=== PATIENT | male | born 1960 | race American Indian/Alaskan Native ===

== ENCOUNTER 2019-04-07 23:29 | Emergency (ER) | payer OTHER ==
[2019-04-07 23:36] VITALS: BP 163/103
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
[2019-04-08] MEDS ORDERED: IBUPROFEN PO ONE (01:11)
== END 2019-04-08 01:43 | disposition home or self-care (01) ==
LOC: ED 23:29
DX: M54.2 Cervicalgia (principal); R03.0 Elevated blood-pressure reading, without diagnosis of hypertension; F17.200 Nicotine dependence, unspecified, uncomplicated; Z98.890 Other specified postprocedural states; Z79.899 Other long term (current) drug therapy; V89.2XXA Person injured in unspecified motor-vehicle accident, traffic, initial encounter; Y93.89 Activity, other specified; Y92.488 Other paved roadways as the place of occurrence of the external cause; Y99.8 Other external cause status
CPT/HCPCS: 72040; 99283

== ENCOUNTER 2021-07-18 19:37 | Emergency (ER) | payer OTHER ==
[2021-07-18] MEDS ORDERED: ACETAMINOPHEN 325 MG TAB PO ONE (20:06)
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
[2021-07-18 21:57] VITALS: BP 192/111
== END 2021-07-18 21:40 | disposition home or self-care (01) ==
LOC: ED 19:37
DX: S16.1XXA Strain of muscle, fascia and tendon at neck level, initial encounter (principal); M62.838 Other muscle spasm; R03.0 Elevated blood-pressure reading, without diagnosis of hypertension; F17.200 Nicotine dependence, unspecified, uncomplicated; V49.49XA Driver injured in collision with other motor vehicles in traffic accident, initial encounter; Y93.89 Activity, other specified; Y92.89 Other specified places as the place of occurrence of the external cause; Y99.8 Other external cause status
CPT/HCPCS: 99282